=== PATIENT | male | born 1985 | race Caucasian/White ===

== ENCOUNTER 2023-03-30 08:25 | Outpatient (CLI) | payer OTHER ==
--- NOTE | 2023-03-30 09:19 | Sleep Patient Instructions ---
Sleep Center Visit Summary - Patient Visit Information Reason for Visit: Initial consult for evaluation of sleep disordered breathing and other sleep issues. - Patient Instructions Instructions Attached: Sleep Study, Sleep Clinic Visit, Sleep Study Home Monitor Additional Instructions: You will be completing a sleep study, either an in-lab polysomnography (PSG) or home sleep study (HST). You will follow-up in the sleep care office after the sleep study is completed to hear the results and talk about therapy, if needed. You will be called by our office staff to schedule this appointment, but you may contact us with any questions. - Clinic Information Contact: [facility] [address] [place] [address] [email or web address] T: [phone]
--- NOTE | 2023-03-30 09:29 | SLEEP CARE CONSULTATION ---
Information from patient questionnaire entered by Brianna Murray. I have reviewed and concur with the information entered by Brianna Murray. This document represents the service I personally performed and the decisions made by me, Patience Good ARNP. History of Present Illness Service Date and Time: 03/30/2023 08 Reason for Visit: New patient Chief Complaint: reports: Unrefreshed sleep, Snoring, Excessive daytime sleepiness, Observed pauses in breathing, Frequent awakenings at night Date of Onset: 3YRS Usual bedtime: 9PM Time it takes to fall asleep: 1HR Snores at night: Yes Observed to quit breathing while asleep: Yes Sleeps alone due to snoring: No Number of times waking at night: 4-5 Reasons for waking at night: reports: Snoring, Gasping for air (possibly) Toss, Turn, or Twitch while sleeping: Yes Recalls having dreams: Yes (occasionally) Usually gets out of bed at: 5AM; weekends 0730 Feels refreshed in the morning: No Morning headache: Yes (couple times a month; resolves in 15 minutes) Sleepy or fatigued during the day: Yes Ever fallen asleep while driving: No Takes day naps: Yes (1-2 times a week) Dreams during day naps: Yes Prior sleep studies: No Additional HPI information: I had the pleasure of seeing SANTIAGO CONTEH today regarding the possibility of him having a sleep disorder. His current complaints are unrefreshed sleep, frequent night awakenings, observed pauses in breathing and snoring. He states his has been complaining about his sleep and encouraged him to come in. She tells him that he snores loudly and will gasp for air occasionally in his sleep. He has noticed that he is always tired and does not wake up feeling rested. He wakes up a lot at night, mainly from his snoring. He has a new baby at home and tries not to wake them with his snoring. - Parasomnia Symptoms Ever been unable to move upon waking from sleep: No Walks in sleep: No Talks in sleep: No Ever acted out dreams in sleep: No Ever felt weak in the knees when startled or emotional: No Bothered by creepy, crawly, restless sensations in legs: No Problems with memory or concentration: No Subjective Initial [place] Sleepiness Scale score: 11 (03/30/23) Past Medical History Past Medical History: reports: Other (no significant medical history) Social History The patient's occupation is a AM. Patient is and lives in [place]. Have you smoked in the past 12 months: No Years of smokin Quit date: 2015 Alcohol use: Yes Alcohol amount and frequency: 1-2 GLASSES A WEEK Caffeine use: Yes Caffeine amount and frequency: 1 CUP COFFEE DAILY Family History Family history of sleep disordered breathing: No Allergies and Home Medications Known drug allergies: No Drug allergies reviewed: Yes Home medication list reviewed: Yes (no daily medications) Review of Systems Weight gain over past 5 years: 10-15 Cardiovascular: denies: high blood pressure Respiratory: denies: shortness of breath Gastrointestinal: denies: heartburn Neurological: denies: headaches, head trauma Psychiatric: denies: anxiety, depression Ear/Nose/Throat: reports: tonsillectomy, wisdom teeth removed Endocrine: denies: thyroid disease Immunologic: denies: allergies to food or environment Physical Exam Vital signs obtained and entered by: BRIANNA Millan MA Blood Pressure: 112/74 (LEFT ARM) Cuff size: regular Heart Rate: 70 O2 Saturation: 97 Height: 5 ft 11 in Weight: 254 lb Body Mass Index: 35.4 BMI Classification: Obese Neck circumference: 17.5 Mouth and throat: narrow oropharynx Soft palate: long Hard palate: normal Uvula: long Uvula visualization: 0% Mallampati Class IV Tongue: enlarged in size with teeth sheehan on lateral edges Tonsils: absent bilaterally Neck: normal w/o lymphadenopathy or thyromegaly Heart: regular rate and rhythm Lungs: clear bilaterally Impression and Plan 1. Suspected Obstructive Sleep Apnea-Hypopnea Syndrome, as suggested by a history of loud and irregular snoring, observed cessation of breath while asleep, gasping or choking in sleep, morning headache, frequent awakening during the night, unrefreshed sleep, and excessive daytime sleepiness. Narrow oropharynx and obesity are common predisposing factors for obstructive sleep apnea-hypopnea syndrome. I recommend proceeding to polysomnography to confirm the diagnosis and to assess severity. If the patient has significant sleep disordered breathing, a manual CPAP titration study will also be performed to find the optimal treatment pressure. I informed the patient of what the sleep studies involve and after some discussion, obtained agreement to proceed. The pathophysiology of obstructive sleep apnea-hypopnea syndrome was discussed with the patient and health risks of cardiovascular and cerebrovascular disease if not treated. Risks of drowsy driving discussed in detail and patient advised to avoid long distance driving and to tack puller at the first sign of drowsiness. Patient agreed to plan. * Schedule polysomnography +- manual CPAP titration study and return in 1-2 weeks after the study to discuss result and initiate therapy. * Avoid long distance driving or driving when feeling sleepy. * Avoid alcohol, sedative and muscle relaxant around bedtime. * Attempt to lose weight. * Review instructions provided by trained office staff on how to prepare for the sleep study. * Return for follow-up after sleep study completed. Counseling Topics: Weight loss health impact Visit Type: In Office Time Spent with Patient (minutes): 30 Provider Statement: I spent 100% of the Face to Face Visit with the patient with greater than 50% spent counseling the patient and coordination of care.
[2023-03-30 09:32] VITALS: BP 112/74
== END 2023-03-30 08:26 | disposition home or self-care (01) ==
LOC: SC 08:25
PROVIDERS: ATTEND Nurse Practitioner Family
DX: R06.83 Snoring (principal); G47.8 Other sleep disorders; R06.81 Apnea, not elsewhere classified; G47.10 Hypersomnia, unspecified; R53.83 Other fatigue; E66.9 Obesity, unspecified; Z68.35 Body mass index [BMI] 35.0-35.9, adult; Z87.891 Personal history of nicotine dependence
CPT/HCPCS: 99203; 99212

== ENCOUNTER 2023-09-03 16:57 | Emergency (ER) | payer OTHER ==
[2023-09-03 17:46] VITALS: BP 156/77; O2SAT 98
--- NOTE | 2023-09-03 18:12 | XRAY Report ---
PROCEDURE: Foot 3 View RT INDICATIONS: Trauma TECHNIQUE: 3 views of the foot were acquired. COMPARISON: None. FINDINGS: Bones: Mildly displaced fracture at the base of the distal first phalanx. Intra-articular. Soft tissues: No suspicious soft tissue calcifications or masses. IMPRESSION: Mildly displaced, intra-articular fracture at the base of the first distal phalanx. Reviewed by: Kayode Camp on 09/03/2023 6:11 PM [facility] Approved by: Kayode Camp on 09/03/2023 6:11 PM [facility]UST Station ID: [id number]
--- NOTE | 2023-09-03 19:07 | ED Physician Documentation ---
History of Present Illness - Stated complaint Stated Complaint: RT FOOT TOE INJ - Chief complaint Chief Complaint: Trauma Ext - Additonal information Additional information: 38-year-old male here for evaluation of acute right great toe pain. He tripped on a child's backpack while climbing the stairs at home. He was not wearing shoes or socks and he avulsed the nail causing bleeding in the proximal cuticle edge. Tetanus is up-to-date. Review of Systems Constitutional: denies: Fever Skin: reports: Lesions Musculoskeletal: reports: Joint pain PD PAST MEDICAL HISTORY - Past Medical History Past Medical History: No - Past Surgical History Ortho: Other - Present Medications Home Medications: Ambulatory Orders Medication Instructions Recorded Confirmed No Known Home Medications 03/30/23 09/03/23 - Allergies Allergies/Adverse Reactions: Allergies Allergy/AdvReac Type Severity Reaction Status Date / Time No Known Drug Allergies Allergy Verified 03/30/23 08:46 - Social History Does the pt smoke?: No Smoking Status: Never smoker Does the pt drink ETOH?: Yes Does the pt have substance abuse?: No - Immunizations Immunizations are current?: Yes PD ED PE EXPANDED - Extremities Extremities: Right toe(s) (Great toe with bleeding at the proximal cuticle edge. The nail itself is well adhered to the nailbed without subungual hematoma. Mild tenderness over the distal phalanx of the toe. Neurovascular intact) Results - Vitals Vitals: Vital Signs - 24 hr 09/03/23 17:28 Temperature 37 C Heart Rate 84 Respiratory 16 Rate Blood Pressure 156/77 H O2 Saturation 98 Oxygen O2 Source Room air - Rads (name of study) right foot Relevant Findings:: Final report received (Mildly displaced intra-articular fracture at the base of the first distal phalanx) PD Medical Decision Making - ED course Complexity details: reviewed results, d/w patient ED course: 38-year-old male here for evaluation of a right great toe injury sustained when he tripped on child's backpack going up the stairs. He feels like the nail was pulled and he has some bleeding at the proximal cuticle edge. An x-ray shows a mildly displaced intra-articular fracture at the base of the distal phalanx. On evaluation he does have tenderness in this area. There is no subungual hematoma that would be amenable to trephination. The bleeding appears superficial and a simple bandage was placed over it. Patient was given a postop shoe and crutches. We will follow-up with [facility] for referral to orthopedics. Advised to be nonweightbearing until seen by Ortho. Advised Motrin Tylenol otherwise. Usual emergent return precautions discussed worsening symptoms. Departure - Departure Disposition: 01 Home, Self Care Clinical Impression: Fracture of distal phalanx of toe of right foot Nail avulsion of toe Qualifiers: Encounter type: initial encounter Qualified Code(s): S91.209A - Unspecified open wound of unspecified toe(s) with damage to nail, initial encounter Condition: Stable Record reviewed to determine appropriate education?: Yes Instructions: ED Fx Toe Closed Comments: The x-ray of your foot shows a mildly displaced, intra-articular fracture at the base of the distal phalanx of your great toe. I recommend that you tape this toe to the adjacent 1 to immobilize it. Use the postop shoe provided and crutches. Most likely this fracture will simply be observed for healing through orthopedics but you are to be nonweightbearing until seen by the orthopedics doctor. Request referral tomorrow through [facility]. You do have a nail avulsion though this is something that will simply heal with time and the nail does not need to be removed or trephinated. Recommend simple bandage. Return immediately to the ER if you have any concerns of worsening pain or concerns of infection. In general I recommend they take Tylenol or ibuprofen [id number] for discomfort.
[2023-09-03] MEDS ORDERED: IBUPROFEN 600 MG TABLET PO STA (19:37)
== END 2023-09-03 20:07 | disposition home or self-care (01) ==
LOC: ED 16:57
DX: S92.531A Displaced fracture of distal phalanx of right lesser toe(s), initial encounter for closed fracture (principal); W10.9XXA Fall (on) (from) unspecified stairs and steps, initial encounter; Y92.009 Unspecified place in unspecified non-institutional (private) residence as the place of occurrence of the external cause
CPT/HCPCS: 73630; 99283; A9270